=== PATIENT | female | born 1995 | race African-American/Black ===

== ENCOUNTER 2019-11-19 23:20 | Inpatient (IN) | payer MEDICAID ==
[~2019-11-19] VITALS: Ht 162.6 cm; Wt 96.2 kg
[2019-11-20] MEDS ORDERED: OXYTOCIN 20 UNITS in LACTATED RINGERS 1,000 ML IV SCH (00:15)
[2019-11-20] MEDS ORDERED: MISOPROSTOL 25 MCG TAB VG PRN (00:15)
[2019-11-20] MEDS ORDERED: METHYLERGONOVINE 0.2 MG/ML AMP IM PRN ×2 (00:15→23:50)
[2019-11-20] MEDS: LACTATED RINGERS 1,000 ML IV SCH ×3 (00:23→18:08)
[2019-11-20] MEDS ORDERED: fentaNYL 0.05 MG/ML VIAL IVP PRN (00:40)
[2019-11-20 00:47] LABS: APPEARANCE,URINE CLOUDY (CLEAR); BILIRUBIN,URINE NEGATIVE (NEGATIVE); BLOOD, URINE TRACE-I (NEGATIVE); COLOR,URINE YELLOW (YELLOW); LEUKOCYTE ESTERASE ,URINE 2+ (NEGATIVE); NITRITE, URINE NEGATIVE (NEGATIVE); UGLUCOSE NEGATIVE (NEGATIVE)
[2019-11-20 00:48] LABS: BASOPHILS % (AUTO) 0.3 % (0.0-2.0); EOSINOPHILS # (AUTO) 0.1 K/uL (0-0.4); EOSINOPHILS % (AUTO) 0.9 % (0.0-4.0); HEMATOCRIT 36.1 % (36-48); HEMOGLOBIN 11.7 g/dL (12.0-16.0); LYMPHOCYTES # (AUTO) 1.6 K/uL (2.5-16.5); MEAN CORPUSCULAR HEMOGLOBIN 30 pg (27-31); MEAN CORPUSCULAR HGB CONC 32 g/dL (33-37); MEAN CORPUSCULAR VOLUME 91.8 fL (80-94); MONOCYTES # (AUTO) 0.7 K/uL (0.8-1.0); MONOCYTES % (AUTO) 7.8 % (1.7-9.3); NEUTROPHILS # (AUTO) 6.4 K/uL (1.8-7.7); PLATELET COUNT (AUTO) 216 K/uL (140-450); RED BLOOD CELL COUNT(AUTO) 3.94 MIL/uL (4.20-5.40); WHITE BLOOD COUNT (AUTO) 8.7 K/uL (4.8-10.8)
[2019-11-20 01:08] LABS: ALBUMIN 2.9 g/dL (3.4-5.0); ANION GAP 15.4 (8-16); CARBON DIOXIDE 22.3 mmol/L (21-32); CREATININE 0.6 mg/dL (0.6-1.3); POTASSIUM 3.7 mmol/L (3.5-5.1); TOTAL BILIRUBIN 0.2 mg/dL (0.0-1.0)
[2019-11-20 01:47] LABS: WBC,URINE TOO MANY TO COUNT /HPF (0-5)
[2019-11-20 02:05] VITALS: BP 112/64
[2019-11-20] MEDS ORDERED: BUPIVACAINE 0.125%/NS PREMIX 250 ML ONE (08:40)
--- NOTE | 2019-11-20 08:53 | NUR ---
PATIENT HAS BEEN SCREENED AND CATEGORIZED LOW NUTRITION RISK. PATIENT WILL BE SEEN WITHIN 7 DAYS OF ADMISSION. 11/26/[address]
[2019-11-20] MEDS ORDERED: ROPIVACAINE 0.2%/NS PREMIX 200 ML EPI ONE (09:07)
[2019-11-20] MEDS ORDERED: ROPIVACAINE 0.2%/NS PREMIX 100 ML EPI SCH (09:30)
[2019-11-20] MEDS ORDERED: OXYTOCIN 20 UNITS/LR PREMIX 1,000 ML IV ONE (11:31)
[2019-11-20] MEDS ORDERED: LIDOCAINE 1% 500 MG/50 ML VIAL ONE (23:17)
[2019-11-20] MEDS ORDERED: LIDOCAINE MPF 1% 10 MG/ML VIAL INJ SCH (23:20)
[2019-11-20] MEDS ORDERED: IBUPROFEN 800 MG TAB PO PRN (23:50)
[2019-11-20] MEDS ORDERED: OXYTOCIN 10 UNITS/ML VIAL IM PRN (23:50)
[2019-11-20] MEDS ORDERED: METHYLERGONOVINE 0.2 MG TAB PO PRN (23:50)
[2019-11-20] MEDS ORDERED: BENZOCAINE/MENTHOL 20%-0.5% 60 GM CAN TP PRN (23:50)
[2019-11-20] MEDS ORDERED: MEASLES, MUMPS, AND RUBELLA 1 VIAL SQVAC PRN (23:50)
[2019-11-21 06:23] LABS: HEMATOCRIT 28.9 % (36-48); HEMOGLOBIN 9.5 g/dL (12.0-16.0)
== END 2019-11-22 11:20 | disposition home or self-care (01) | DRG 560 ==
LOC: MFCC 23:20 → MLD 11-20 08:18 → MFCC 11-21 06:39
PROVIDERS: ADMIT Obstetrics & Gynecology; ATTEND Obstetrics & Gynecology
PROC: 10E0XZZ Delivery of Products of Conception, External Approach (ICD-10-PCS; principal; 2019-11-20)
PROC: 0UQMXZZ Repair Vulva, External Approach (ICD-10-PCS; 2019-11-20)
PROC: 3E0R3BZ Introduction of Anesthetic Agent into Spinal Canal, Percutaneous Approach (ICD-10-PCS; 2019-11-20)
PROC: 00HU33Z Insertion of Infusion Device into Spinal Canal, Percutaneous Approach (ICD-10-PCS; 2019-11-20)
PROC: 10907ZC Drainage of Amniotic Fluid, Therapeutic from Products of Conception, Via Natural or Artificial Opening (ICD-10-PCS; 2019-11-20)
DX: O71.82 Other specified trauma to perineum and vulva (principal); D62 Acute posthemorrhagic anemia; Z37.0 Single live birth; Z3A.40 40 weeks gestation of pregnancy
CPT/HCPCS: 36415; 51702; 59200; 59409; 76815; 80053; 81001; 85018; 85025; 86592; 86886; 86900; 86901; 87086; J2001; J2590; J2795; J3490; J7120; Q0092